=== PATIENT | female | born 1985 | race African-American/Black ===

== ENCOUNTER 2018-07-22 17:56 | Emergency (ER) | payer BC ==
[~2018-07-22] VITALS: Ht 167.6 cm; Wt 104.3 kg
[2018-07-22 18:02] VITALS: BP 126/65
[2018-07-22] MEDS ORDERED: methylPREDNISolone SOD SUCC 125 MG/2 ML VL IM ONE (20:45)
[2018-07-22] MEDS ORDERED: KETOROLAC TROMETH 60MG/2ML VIAL IM ONE (20:45)
== END 2018-07-22 21:38 | disposition home or self-care (01) ==
LOC: ER 18:01
DX: M54.40 Lumbago with sciatica, unspecified side (principal)
CPT/HCPCS: 72100; 96372; 99284; J1885; J2930

== ENCOUNTER 2019-08-12 18:07 | Emergency (ER) | payer BC ==
[~2019-08-12] VITALS: Ht 167.6 cm; Wt 115.7 kg
[2019-08-12 18:54] LABS: Urine Bacteria NONE SEEN /hpf (None Seen); Urine Blood Negative /uL (Negative); Urine Specific Gravity 1.029 (1.001-1.035); Urine WBC 2 /hpf (0 - 5)
[2019-08-12 19:47] VITALS: BP 134/63
== END 2019-08-12 20:36 | disposition home or self-care (01) ==
LOC: ER 18:07
DX: O23.42 Unspecified infection of urinary tract in pregnancy, second trimester (principal); O26.892 Other specified pregnancy related conditions, second trimester; R10.9 Unspecified abdominal pain; Z3A.18 18 weeks gestation of pregnancy
CPT/HCPCS: 81001

== ENCOUNTER 2022-10-02 16:41 | Emergency (ER) | payer BC, OTHER ==
[~2022-10-02] VITALS: Ht 167.6 cm; Wt 138.0 kg
[2022-10-02 18:37] LABS: Basophils # (auto) 0.1 10 ^3/uL (0-0.2); Basophils % (auto) 0.7 % (0.0-2.0); Eosinophils # (auto) 0.3 10 ^3/uL (0-0.8); Eosinophils % (auto) 2.8 % (0.0-7.0); Hematocrit 36.9 % (36.0-46.0); Hemoglobin 11.7 g/dL (12.2-16.2); Lymphocytes # (auto) 1.8 10 ^3/uL (0.4-5.4); Lymphocytes % (auto) 18.1 % (10.0-50.0); Mean Corpuscular Hemoglobin 24.8 pg (28.0-32.0); Mean Corpuscular Hgb Conc. 31.8 g/dL (32.0-36.0); Mean Corpuscular Volume 77.8 fL (80.0-100.0); Monocytes # (auto) 0.4 10 ^3/uL (0-1.3); Monocytes % (auto) 4.2 % (0.0-12.0); Neutrophils # (auto) 7.6 10 ^3/uL (1.6-8.6); Neutrophils % (auto) 74.2 % (37.0-80.0); Nucleated Red Blood Cells % 0.1 %; Red Blood Cells 4.74 10^6/uL (4.0-5.20); Red Cell Distribution Width 16.2 % (11.8-14.3); White Blood Cell 10.2 10^3/uL (4.4-10.8)
[2022-10-02 18:54] LABS: Albumin 3.5 g/dL (3.4-5.0); Calcium 9.1 mg/dL (8.5-10.1); Potassium 3.8 mmol/L (3.5-5.1)
[2022-10-02 18:57] LABS: BUN/Creatinine Ratio 12.9; Bilirubin, Total 0.3 mg/dL (0.2-1.0); Total Protein 7.8 g/dL (6.4-8.2)
[2022-10-02 19:29] LABS: Urine Bacteria FEW /hpf (None Seen); Urine Blood Negative /uL (Negative); Urine Mucus FEW (None Seen); Urine Specific Gravity 1.028 (1.001-1.035); Urine WBC <1 /hpf (0 - 5)
[2022-10-02 19:37] LABS: INR 0.98 (0.9-1.15); Partial Thromboplastin Time 29.1 sec (24.6-33.4)
[2022-10-02 20:08] VITALS: BP 150/86
== END 2022-10-02 21:29 | disposition home or self-care (01) ==
LOC: ER 16:41 → EDBD 16:41 → ER 21:25
DX: R07.89 Other chest pain (principal)
CPT/HCPCS: 36415; 71045; 80053; 81001; 81025; 83880; 84484; 85025; 85610; 85730; 93005

== ENCOUNTER → 2022-11-27 | Outpatient (CLI) | payer BC ==
[2022-11-27 08:36] VITALS: BP 173/90
== END | disposition home or self-care (01) ==
LOC: XYW 07:20
PROVIDERS: ATTEND Internal Medicine
DX: I10 Essential (primary) hypertension (principal); E66.9 Obesity, unspecified
CPT/HCPCS: 78452; 93017; A9500